=== PATIENT | female | born 1985 | race Caucasian/White ===

== ENCOUNTER 2022-08-14 19:26 | Observation (INO) | payer OTHER ==
--- NOTE | 2022-08-14 20:35 | ED ---
Abdominal Pain HPI - General Chief Complaint: Abdominal Pain Stated Complaint: appendicitis Time Seen by Provider: 08/14/22 20:28 Source: patient Mode of arrival: wheelchair Limitations: no limitations - History of Present Illness Initial Comments: Patient presents to the ED with her for evaluation. Patient states that she developed right lower quadrant abdominal pain about 4-1/2 hours ago. Patient states that her pain was initially mild, but has become steadily more severe since then. Patient states that her pain is worse with movements/changes in position, and she states that her pain waxes and wanes. Patient admits to feeling nauseated as well. Patient states that her primary care provider is concerned that she may have appendicitis, and so she was advised to come to the ED. Patient denies trauma or injury, fever or chills, headache, focal neuro deficit, chest pain or pressure, dyspnea, cough or cold symptoms, dizziness, upper abdominal pain, back or flank pain, vomiting, diarrhea or constipation, bloody or melanotic stool, dysuria/hematuria/urinary frequency/urinary symptoms, vaginal bleeding or discharge, or any other symptoms or complaints. Patient states that she has had a tubal ligation surgery, but she denies any other prior abdominal surgery. Patient states that her LMP was 2 weeks ago. Patient denies taking any pain medication today. - Related Data Home Medications Medication Instructions Recorded Confirmed No Known Home Medications 08/14/22 08/14/22 Allergies Allergy/AdvReac Type Severity Reaction Status Date / Time hydrocodone [From Vicodin] AdvReac Mild Nausea & Verified 08/14/22 21:51 Vomiting Review of Systems ROS Statement: Those systems with pertinent positive or pertinent negative responses have been documented in the HPI. ROS Other: All systems not noted in ROS Statement are negative. General Exam Limitations: no limitations General appearance: alert Head exam: Present: atraumatic, normocephalic Eye exam: Present: normal appearance, EOMI ENT exam: Present: mucous membranes moist Neck exam: Present: other (Trachea is in midline) Respiratory exam: Present: normal lung sounds bilaterally. Absent: respiratory distress, wheezes, rales, rhonchi, stridor Cardiovascular Exam: Present: normal rhythm, tachycardia, normal heart sounds, other (Normal radial pulses bilaterally) GI/Abdominal exam: Present: soft, normal bowel sounds, other (Moderate right lower quadrant abdominal tenderness). Absent: distended, guarding, rebound Back exam: Absent: CVA tenderness (R), CVA tenderness (L) Neurological exam: Present: alert, oriented X3. Absent: motor sensory deficit Psychiatric exam: Present: normal affect, normal mood Skin exam: Present: warm, dry, intact, normal color Course Vital Signs 08/14/22 20:12 Temperature 98.7 F Pulse Rate 115 H Respiratory 20 Rate Blood Pressure 118/71 O2 Sat by Pulse 98 Oximetry - Reevaluation(s) Reevaluation #1: 08/14/22 21:57 Case, H&P, test results and ED management thus far were discussed with Dr. Kaiser (general surgery). He accepts hospital admission. He has no further recommendations at this time. 08/14/22 22:06 Patient states that her pain has improved with the treatment, and she denies development of any new symptoms while in the ED. Patient and are aware the patient's test results and my discussion with Dr. Kaiser as above. Patient agrees with hospital admission for surgical treatment of her acute appendicitis. Medical Decision Making - Medical Decision Making Patient's exam and CT findings are consistent with acute appendicitis. Patient has been treated with IV analgesics and IV antibiotics in the ED. General surgery (Dr. Kaiser) was consulted from the ED and has accepted hospital admission. - Lab Data Result diagrams: 08/14/22 20:28 08/14/22 20:28 Lab Results 08/14/22 08/14/22 Range/Units 20:28 20:28 WBC 11.5 H (3.8-10.6) k/uL RBC 4.69 (3.80-5.40) m/uL Hgb 13.1 (11.4-16.0) gm/dL Hct 39.4 (34.0-46.0) % MCV 83.9 (80.0-100.0) fL MCH 27.9 (25.0-35.0) pg MCHC 33.2 (31.0-37.0) g/dL RDW 13.3 (11.5-15.5) % Plt Count 216 (150-450) k/uL MPV 7.5 Neutrophils % 79 % Lymphocytes % 14 % Monocytes % 4 % Eosinophils % 1 % Basophils % 1 % Neutrophils # 9.0 H (1.3-7.7) k/uL Lymphocytes # 1.7 (1.0-4.8) k/uL Monocytes # 0.4 (0-1.0) k/uL Eosinophils # 0.1 (0-0.7) k/uL Basophils # 0.1 (0-0.2) k/uL Sodium 136 L (137-145) mmol/L Potassium 3.5 (3.5-5.1) mmol/L Chloride 99 (98-107) mmol/L Carbon Dioxide 25 (22-30) mmol/L Anion Gap 12 mmol/L BUN 15 (7-17) mg/dL Creatinine 0.78 (0.52-1.04) mg/dL Est GFR (CKD-EPI)AfAm >90 (>60 ml/min/1.73 sqM) Est GFR (CKD-EPI)NonAf >90 (>60 ml/min/1.73 sqM) Glucose 115 H (74-99) mg/dL Calcium 9.7 (8.4-10.2) mg/dL Total Bilirubin 0.3 (0.2-1.3) mg/dL AST 19 (14-36) U/L ALT 15 (4-34) U/L Alkaline Phosphatase 64 (38-126) U/L Total Protein 6.6 (6.3-8.2) g/dL Albumin 4.4 (3.5-5.0) g/dL Lipase 43 (23-300) U/L HCG, Qual Not Detected - Radiology Data CT abdomen/pelvis with IV contrast: Thickened appendix with fat stranding related to acute appendicitis. Disposition Clinical Impression: Abdominal pain, Acute appendicitis Disposition: ADMITTED IP TO THIS [facility] Condition: Stable Is patient prescribed a controlled substance at d/c from ED?: No Referrals: None,Stated [REFERRING] - 1-2 days Time of Disposition: 21:58
[2022-08-14] MEDS ORDERED: HYDROmorphone 1 MG/ML 1 ML SYRINGE IVP STA ×2 (20:39→23:13)
[2022-08-14] MEDS ORDERED: ONDANSETRON 4 MG/2 ML VIAL IVP STA (20:40)
[2022-08-14] MEDS ORDERED: SODIUM CHLORIDE 0.9% 1,000 ML IV ONE (20:40)
[2022-08-14 20:41] LABS: Basophils # (A) 0.1 k/uL (0-0.2); Basophils % (A) 1 %; Eosinophils # (A) 0.1 k/uL (0-0.7); Eosinophils % (A) 1 %; HCT 39.4 % (34.0-46.0); HGB 13.1 gm/dL (11.4-16.0); Lymphocytes # (A) 1.7 k/uL (1.0-4.8); Lymphocytes % (A) 14 %; MCH 27.9 pg (25.0-35.0); MCHC 33.2 g/dL (31.0-37.0); MCV 83.9 fL (80.0-100.0); Mean Platelet Volume 7.5; Monocytes # (A) 0.4 k/uL (0-1.0); Monocytes % (A) 4 %; Neutrophils % (A) 79 %; Platelet Count 216 k/uL (150-450); RBC 4.69 m/uL (3.80-5.40); RDW 13.3 % (11.5-15.5); WBC 11.5 k/uL (3.8-10.6)
[2022-08-14 20:51] LABS: ALT 15 U/L (4-34); AST 19 U/L (14-36); African American GFR (CKD) >90 (>60 ml/min/1.73 sqM); Albumin 4.4 g/dL (3.5-5.0); Alkaline Phosphatase 64 U/L (38-126); Anion Gap 12 mmol/L; Blood Urea Nitrogen 15 mg/dL (7-17); Calcium 9.7 mg/dL (8.4-10.2); Carbon Dioxide 25 mmol/L (22-30); Chloride 99 mmol/L (98-107); Glucose 115 mg/dL (74-99); Lipase 43 U/L (23-300); Non-African American GFR(CKD) >90 (>60 ml/min/1.73 sqM); Potassium 3.5 mmol/L (3.5-5.1); Sodium 136 mmol/L (137-145); Total Bilirubin 0.3 mg/dL (0.2-1.3); Total Protein 6.6 g/dL (6.3-8.2)
[2022-08-14 21:25] LABS: HCG,Qualitative Serum Not Detected
--- NOTE | 2022-08-14 21:33 | CT ---
EXAMINATION TYPE: CT abdomen pelvis w con DATE OF EXAM: 08/14/2022 COMPARISON: None HISTORY: RLQ pain CT DLP: 886 mGycm Automated exposure control for dose reduction was used. CONTRAST: Performed with IV Contrast, patient injected with 100 mL of Isovue 300. Images obtained from the diaphragm to the floor the pelvis with IV contrast. Lung bases are clear. No pleural effusion. Heart size is normal. No pericardial effusion. Liver splee n and stomach pancreas gallbladder appear intact. The bile ducts are not dilated. There is no adrenal mass. Kidneys have normal size and contour. No hydronephrosis. Ureters are not di lated. No retroperitoneal adenopathy. Bladder distends smoothly. No inguinal hernia. Uterus is anteve rted. No pelvic mass. No free fluid in the pelvis. Delayed images show normal renal excretion. There is 10 mm appendix which is lateral and inferior. There is minimal stranding around the appendix . The lumbar vertebrae have normal alignment. No compression fracture. The pelvis is intact and the gabe nts are intact IMPRESSION: Thickened appendix with fat stranding related to acute appendicitis.
[2022-08-14] MEDS ORDERED: PIPERACILLIN-TAZOBACTAM 3.375 GM in SODIUM CHLORIDE 0.9% 100 ML IVPB STA (21:38)
[2022-08-14] MEDS ORDERED: NALOXONE 0.4 MG/ML 1 ML VIAL IV PRN (21:58)
[2022-08-14] MEDS ORDERED: HYDROmorphone 1 MG/ML 1 ML SYRINGE IVP PRN (21:58)
[2022-08-14] MEDS ORDERED: SODIUM CHLORIDE 0.9% 1,000 ML IV SCH (22:00)
[2022-08-14] MEDS: ONDANSETRON 4 MG/2 ML VIAL IVP PRN (23:23)
[2022-08-14 23:45] LABS: Appearance,Urine Clear (Clear); Bilirubin,Urine Negative (Negative); Blood,Urine Negative (Negative); Color,Urine Colorless; Glucose,Urine (UA) Negative (Negative); Ketones,Urine Negative (Negative); Leukocyte Esterase,Urine Negative (Negative); Nitrite,Urine Negative (Negative); Protein,Urine Negative (Negative); Urobilinogen,Urine <2.0 mg/dL (<2.0)
--- NOTE | 2022-08-15 00:43 | P.HPIM ---
History of Present Illness H&P Date: 08/15/22 Chief Complaint: Abdominal pain 36-year-old female presents to the emergency department with complaints of abdominal pain. Patient states pain began approximately 4 PM August 14. Pain was worse with movement patient noted nausea but no emesis. No fever, no similar complaints in the past. Patient was seen in the emergency department a computed tomography scan was performed which was consistent with acute appendicitis. Review of Systems Denies fever change in vision no shortness of breath No diarrhea No urinary complaints Past Medical History Additional Past Medical History / Comment(s): Denies known hypertension, breathing problems, heart disease, peptic ulcer disease, no neurological problem s. Additional Past Surgical History / Comment(s): History of tubal ligation Medications and Allergies Home Medications and Allergies Comment(s): No regular medications NO KNOWN DRUG ALLERGIES Home Medications Medication Instructions Recorded Confirmed Type No Known Home Medications 08/14/22 08/14/22 History Allergies Allergy/AdvReac Type Severity Reaction Status Date / Time hydrocodone [From Vicodin] AdvReac Mild Nausea & Verified 08/14/22 21:51 Vomiting Physical Exam Vitals: Vital Signs Temp Pulse Resp BP Pulse Ox 08/14/22 20:12 98.7 F 115 H 20 118/71 98 Intake and Output 08/14/22 08/14/22 08/15/22 14:59 22:59 06:59 Other: Weight 71.668 kg - Constitutional Appears uncomfortable, complaining of nausea after pain medication - EENT Sclerae clear, nonicteric, extraocular muscles intact - Respiratory Clear to auscultation - Cardiovascular Regular rate and rhythm, no murmur noted - Gastrointestinal Protuberant, soft, right lower quadrant tenderness present. - Neurologic Slightly agitated secondary to nausea, orientated 3, appropriate affect Results CBC & Chem 7: 08/14/22 20:28 08/14/22 20:28 Labs: Abnormal Lab Results - Last 24 Hours (Table) 08/14/22 08/14/22 08/14/22 Range/Units 20:28 20:28 23:10 WBC 11.5 H (3.8-10.6) k/uL Neutrophils # 9.0 H (1.3-7.7) k/uL Sodium 136 L (137-145) mmol/L Glucose 115 H (74-99) mg/dL Ur Specific [place] 1.040 H (1.001-1.035) CT scan - abdomen: report reviewed (CT notes thickened appendix with fat stranding consistent with appendicitis) Assessment and Plan Assessment: 36-year-old female with acute appendicitis Plan: Admit, IV antibiotics, IV fluids, nothing by mouth Plan for laparoscopic possible open appendectomy in morning This was discussed with the patient and her spouse and they're agreeable.
[2022-08-15] MEDS: KETOROLAC 15 MG/ML 1 ML VIAL IVP SCH ×3 (01:17→14:20)
[2022-08-15 06:28] LABS: Basophils % (A) 1 %; Eosinophils % (A) 0 %; HCT 38.1 % (34.0-46.0); HGB 12.2 gm/dL (11.4-16.0); Lymphocytes # (A) 1.1 k/uL (1.0-4.8); Lymphocytes % (A) 12 %; MCH 27.2 pg (25.0-35.0); MCHC 32.1 g/dL (31.0-37.0); MCV 84.9 fL (80.0-100.0); Mean Platelet Volume 7.6; Monocytes # (A) 0.3 k/uL (0-1.0); Monocytes % (A) 4 %; Neutrophils # (A) 7.6 k/uL (1.3-7.7); Neutrophils % (A) 82 %; Platelet Count 180 k/uL (150-450); RBC 4.49 m/uL (3.80-5.40); RDW 13.3 % (11.5-15.5); WBC 9.2 k/uL (3.8-10.6)
[2022-08-15] MEDS: ONDANSETRON 4 MG/2 ML VIAL IVP PRN (06:37)
[2022-08-15 06:46] LABS: ALT 13 U/L (4-34); AST 15 U/L (14-36); African American GFR (CKD) >90 (>60 ml/min/1.73 sqM); Albumin 3.5 g/dL (3.5-5.0); Alkaline Phosphatase 51 U/L (38-126); Anion Gap 8 mmol/L; Blood Urea Nitrogen 11 mg/dL (7-17); Calcium 8.4 mg/dL (8.4-10.2); Carbon Dioxide 23 mmol/L (22-30); Chloride 104 mmol/L (98-107); Glucose 132 mg/dL (74-99); Non-African American GFR(CKD) >90 (>60 ml/min/1.73 sqM); Potassium 4.2 mmol/L (3.5-5.1); Sodium 135 mmol/L (137-145); Total Bilirubin 0.4 mg/dL (0.2-1.3); Total Protein 5.6 g/dL (6.3-8.2)
[2022-08-15] MEDS ORDERED: BUPIVACAIN-EPI 0.25%-1:200,000 30 ML VIAL SQ ONE ×2 (08:53→09:26)
[2022-08-15] MEDS ORDERED: DEXAMETHASONE SOD PHOSPHATE 10 MG/ML 1 ML VIAL IVP ONE (08:58)
[2022-08-15] MEDS ORDERED: METOCLOPRAMIDE 5 MG/ML 2 ML VIAL IVP ONE (08:58)
[2022-08-15] MEDS ORDERED: fentaNYL (PF) 50 MCG/ML 2 ML AMP ONE (09:01)
[2022-08-15] MEDS ORDERED: LIDOCAINE 2% INJ 20 MG/ML (2 ML VIAL) ONE (09:01)
[2022-08-15] MEDS ORDERED: ROCURONIUM 10 MG/ML (5 ML VIAL) IV ONE (09:01)
[2022-08-15] MEDS ORDERED: NEOSTIGMINE 1 MG/ML 10 ML VIAL ONE (09:01)
[2022-08-15] MEDS ORDERED: PROPOFOL 10 MG/ML 20 ML VIAL IV ONE (09:01)
[2022-08-15] MEDS ORDERED: GLYCOPYRROLATE 0.2 MG/ML 2 ML VIAL ONE (09:01)
[2022-08-15] MEDS ORDERED: MIDAZOLAM 2 MG/2 ML VIAL ONE (09:01)
[2022-08-15] MEDS ORDERED: SUCCINYLCHOLINE CHLORIDE 200 MG/10 ML VIAL IV ONE (09:01)
[2022-08-15] MEDS ORDERED: SCOPOLAMINE 1 MG/72 HR PATCH TRANSDERM ONE (09:04)
[2022-08-15] MEDS ORDERED: SODIUM CHLORIDE 0.9% 100 ML with ceFAZolin 1,000 MG IV ONE ×2 (09:06)
[2022-08-15] MEDS ORDERED: IV FLUID CONTINUATION 1,000 ML IV ONE (09:06)
[2022-08-15] MEDS ORDERED: oxyCODONE-APAP 5-325MG 1 EACH TAB PO PRN (10:17)
[2022-08-15 10:20] VITALS: RESP 16; TEMP 97
--- NOTE | 2022-08-15 10:52 | P.OP ---
Date of Procedure: 08/15/22 Preoperative Diagnosis: Acute appendicitis Postoperative Diagnosis: Acute appendicitis Procedure(s) Performed: Laparoscopic appendectomy Anesthesia: ZAINAB Surgeon: German Kaiser Estimated Blood Loss (ml): 5 IV fluids (ml): 800 Pathology: other (Appendix) Condition: stable Disposition: PACU Indications for Procedure: Patient is a 36-year-old female who presented to the emergency room yesterday evening with complaints of lower abdominal pain severe nausea and vomiting. Patient stated her symptoms began approximately 4 PM and have been continuous. Patient was seen in the emergency department, laboratory studies indicated leukocytosis, a CT was performed which was consistent with acute appendicitis. The nature of appendicitis and its surgical treatment were discussed with the patient and her spouse and informed consent was obtained for appendectomy. Operative Findings: Inflamed appendix without evidence of rupture Description of Procedure: The patient was brought to the operating room a full timeout was taken. Preoperative antibiotics were given. General anesthesia and monitoring were provided by the anesthesia department. Patient had a preoperative urinary catheter placed, she was then placed on the table in a supine position, with the left arm tucked and well-padded. The abdomen was widely prepped and draped in a sterile fashion. A small skin incision was made just above the umbilicus, using a Veress needle, a pneumoperitoneum was established. Entry was gained into the abdominal cavity using a 5 mm optical trocar. Visualization of the abdominal cavity demonstrated a normal appearing liver and gallbladder and stomach. The omentum was draped over the lower right quadrant. A second 5 mm trocar was placed in the lower midline. Using a grasper the omentum was brought off the cecum and a moderately inflamed appendix could be visualized. A 12 mm trocar was placed in the left lower quadrant under direct vision. The appendix was then grasped and a small opening made in the mesoappendix at the base. The base of the appendix was transected across using a Endo AZUL stapler. The remaining mesoappendix was similarly transected across with the Endo AZUL. Specimen was placed in an Endobag and brought out through the larger trocar site. Specimen was handed off the table to be examined by pathology. Trocar was replaced surgical field was inspected, there is noted to be a small amount of bleeding from the staple line. This was controlled with careful cautery in this area. Terminal ileum was inspected and appeared normal. The fascia at the larger trocar site was reapproximated using 0 Vicryl on a Aaron Castellon needle. The pneumoperitoneum was released, the skin was closed at all sites with 4-0 subcuticular Vicryl. Dermabond was placed on the skin. At the completion of the procedure all counts were correct. Patient was extubated and taken to recovery in good condition.
[2022-08-15 16:51] VITALS: BP 94/60; PULSE 65
== END 2022-08-15 17:30 | disposition home or self-care (01) ==
LOC: EC 19:26 → 6NMEDSUR 21:58
PROVIDERS: ADMIT Surgery; ATTEND Surgery
DX: K35.80 Unspecified acute appendicitis (principal); K38.8 Other specified diseases of appendix; K21.9 Gastro-esophageal reflux disease without esophagitis; K44.9 Diaphragmatic hernia without obstruction or gangrene; Z88.5 Allergy status to narcotic agent; Z98.51 Tubal ligation status
CPT/HCPCS: 44970; 96376 ×2; 96374; 96375 ×2; 99285; 36415; 88304; 80053 ×2; 83690; 85025 ×2; 81003; 84703; 74177; G0378 ×2; J2543; J2250; J0330; J1100; J2710; J2765; J2405 ×2; J0690; J3010; J1170; J1885; J2704; Q9967; J2001

== ENCOUNTER → 2023-10-26 | Outpatient (CLI) | payer OTHER ==
[2023-10-27 02:50] LABS: Estradiol 38.6 pg/mL
[2023-10-27 03:58] LABS: Follicle Stimulating Hormone 7.8 mIU/mL; Luteinizing Hormone 11.2 mIU/mL
== END | disposition home or self-care (01) ==
LOC: LABWHC1 13:20
PROVIDERS: ATTEND Family Medicine
DX: N95.1 Menopausal and female climacteric states (principal)
CPT/HCPCS: 36415; 82670; 83001; 83002; 84144; 84146

== ENCOUNTER → 2023-10-31 | Outpatient (CLI) | payer OTHER ==
--- NOTE | 2023-10-31 12:21 | BD ---
EXAMINATION TYPE: Axial Bone Density DATE OF EXAM: 10/31/2023 CLINICAL HISTORY: 38 years old Female. ICD-10 CODE: N95.1 MENOPAUSAL AND FEMALE CLIMACTERIC STATES Height: 65 Weight: 164.8 FRAX RISK QUESTIONS: Alcohol (3 or more units per day): no Family History (Parent hip fracture): no Glucocorticoids (More than 3mos): no (Ex: prednisone, prednisolone, methylprednisolone, dexamethasone, and hydrocortisone). History of Fracture in Adulthood: yes Secondary Osteoporosis: 1. Type 1 Diabetes: no 2. Hyperthyroidism: no 3. Menopause before 45: n/a 4. Malnutrition: no 5. Chronic liver disease: no Rheumatoid Arthritis: no Current Tobacco Use: no RISK FACTORS HISTORY OF: Surgery to Spine/Hip(right/left)/Wrist (right/left): no Family History of Osteoporosis: yes : Additional History: EXAM MEASUREMENTS: Bone mineral densitometry was performed using the [employer]dev[employer] System. Bone mineral density as measured about the Lumbar spine is: ----- L1-L4(G/cm2): 1.181 T Score Values are as follows: ----- L1: 0.0 ----- L2: -0.1 ----- L3: 0.1 ----- L4: -0.1 ----- L1-L4: 0.0 Z Score Values are as follows: ----- L1: -0.4 ----- L2: -0.4 ----- L3: -0.2 ----- L4: -0.4 ----- L1-L4: -0.3 Bone mineral density : baseline Bone mineral density about the R hip (g/cm2): 0.932 Bone mineral density about the L hip (g/cm2): 0.922 T Score values are as follows: -----R Neck: 0.0 -----L Neck: -0.3 -----R Total: -0.6 -----L Total: -0.7 Z Score values are as follows: -----R Neck: 0.2 -----L Neck: -0.1 -----R Total: -0.6 -----L Total: -0.7 Bone mineral density : baseline FRAX%s: The graph provided illustrates a 3.4% chance for a major osteoporotic fx and a 0.1% chance fo r the hips probability for fx in 10 years time. IMPRESSION: Normal (Values between +1 and -1 indicate normal bone mass). Consider repeating this study in 5 year s or sooner if there is some new clinical indication. NOTE: T-SCORE=SD OF THE YOUNG ADULT MEAN.
== END | disposition home or self-care (01) ==
LOC: RADBDWWP 07:08
PROVIDERS: ATTEND Family Medicine
DX: N95.1 Menopausal and female climacteric states (principal)
CPT/HCPCS: 77080

== ENCOUNTER → 2024-05-22 | Outpatient (CLI) | payer OTHER | END | disposition home or self-care (01) | LOC: LABWHC1 06:55 | PROVIDERS: ATTEND Family Medicine | DX: E16.2 Hypoglycemia, unspecified (principal) | CPT/HCPCS: 36415; 82947; 82950 ==

== ENCOUNTER 2024-06-08 22:53 | Emergency (ER) | payer OTHER ==
[2024-06-08 22:59] VITALS: TEMP 98.1
[2024-06-08 23:02] LABS: Glucose,Whole Blood 105 mg/dL (70-110)
[2024-06-08 23:09] LABS: Glucose,Whole Blood 126 mg/dL (70-110)
[2024-06-09 00:01] LABS: Basophils # (A) 0.1 k/uL (0-0.2); Basophils % (A) 1 %; Eosinophils # (A) 0.1 k/uL (0-0.7); Eosinophils % (A) 1 %; HCT 43.1 % (34.0-46.0); Lymphocytes # (A) 2.5 k/uL (1.0-4.8); Lymphocytes % (A) 22 %; MCH 27.8 pg (25.0-35.0); MCHC 32.4 g/dL (31.0-37.0); MCV 85.7 fL (80.0-100.0); Mean Platelet Volume 7.8; Monocytes # (A) 0.5 k/uL (0-1.0); Monocytes % (A) 5 %; Neutrophils # (A) 7.9 k/uL (1.3-7.7); Neutrophils % (A) 71 %; Platelet Count 235 k/uL (150-450); RBC 5.03 m/uL (3.80-5.40); RDW 13.3 % (11.5-15.5); WBC 11.2 k/uL (3.8-10.6)
[2024-06-09 00:08] LABS: ALT 23 U/L (4-34); AST 31 U/L (14-36); African American GFR (CKD) >90 (>60 ml/min/1.73 sqM); Albumin 4.3 g/dL (3.5-5.0); Alkaline Phosphatase 54 U/L (38-126); Anion Gap 10 mmol/L; Blood Urea Nitrogen 15 mg/dL (7-17); Calcium 9.3 mg/dL (8.4-10.2); Carbon Dioxide 22 mmol/L (22-30); Chloride 106 mmol/L (98-107); Glucose 124 mg/dL (74-99); Non-African American GFR(CKD) >90 (>60 ml/min/1.73 sqM); Potassium 4.2 mmol/L (3.5-5.1); Sodium 138 mmol/L (137-145); Total Bilirubin 0.5 mg/dL (0.2-1.3); Total Protein 6.9 g/dL (6.3-8.2)
[2024-06-09 00:26] VITALS: RESP 18
[2024-06-09] MEDS: ONDANSETRON 4 MG/2 ML VIAL IVP STA (00:31)
[2024-06-09] MEDS: SODIUM CHLORIDE 0.9% 1,000 ML IV ONE (00:31)
[2024-06-09 02:14] LABS: Glucose,Whole Blood 93 mg/dL (70-110)
[2024-06-09 02:38] LABS: Appearance,Urine Clear (Clear); Bacteria,Urine Rare /hpf; Bilirubin,Urine Negative (Negative); Blood,Urine Large (Negative); Color,Urine Colorless; Glucose,Urine (UA) Negative (Negative); Ketones,Urine Negative (Negative); Leukocyte Esterase,Urine Small (Negative); Nitrite,Urine Negative (Negative); PH, Urine 6.5 (5.0-8.0); Protein,Urine Negative (Negative); RBC,Urine >182 /hpf (0-5); Squamous Epithelial Cell,Urine 3 /hpf (0-4); Urobilinogen,Urine <2.0 mg/dL (<2.0); WBC,Urine 11 /hpf (0-5)
--- NOTE | 2024-06-09 03:19 | ED ---
General Adult HPI - General Chief complaint: Recheck/Abnormal Lab/Rx Stated complaint: Hypogylcemia Time Seen by Provider: 06/08/24 23:00 Source: patient Mode of arrival: ambulatory Limitations: no limitations - History of Present Illness Initial comments: 38-year-old female who presents emergency department with recurrent hypoglycemia. Patient states that for the past 3 weeks she has had nausea with inability to eat or drink. She has had multiple episodes of near syncope. She borrowed a glucose monitor and found that she was having significant episodes of hypoglycemia. Her primary care doctor is now aware of this diagnosis and has her referred to endocrinology. States that this evening she was having significant difficulty keeping any food down and therefore presents to the hospital for evaluation. She denies any diarrhea. No fevers. No abdominal pain. - Related Data Previous Rx's Medication Instructions Recorded Ondansetron Odt [Zofran Odt] 4 mg PO Q8HR PRN #30 tab 06/09/24 Allergies Allergy/AdvReac Type Severity Reaction Status Date / Time hydrocodone [From Vicodin] AdvReac Mild Nausea & Verified 06/08/24 22:59 Vomiting Review of Systems ROS Statement: Those systems with pertinent positive or pertinent negative responses have been documented in the HPI. ROS Other: All systems not noted in ROS Statement are negative. Past Medical History Additional Past Medical History / Comment(s): Denies known hypertension, breathing problems, heart disease, peptic ulcer disease, no neurological problems, hypoglycemia. History of Any Multi-Drug Resistant Organisms: None Reported Past Surgical History: Appendectomy, Tubal Ligation Additional Past Surgical History / Comment(s): History of tubal ligation, [place] 08/15/22 Past Anesthesia/Blood Transfusion Reactions: No Reported Reaction Past Psychological History: No Psychological Hx Reported Smoking Status: Unknown if ever smoked Past Alcohol Use History: None Reported Past Drug Use History: None Reported General Exam Limitations: no limitations General appearance: alert, in no apparent distress Head exam: Present: atraumatic, normocephalic, normal inspection Eye exam: Present: normal appearance, PERRL, EOMI. Absent: scleral icterus, conjunctival injection, periorbital swelling ENT exam: Present: normal exam, mucous membranes moist Neck exam: Present: normal inspection. Absent: tenderness, meningismus, lymp hadenopathy Respiratory exam: Present: normal lung sounds bilaterally. Absent: respiratory distress, wheezes, rales, rhonchi, stridor Cardiovascular Exam: Present: regular rate, normal rhythm, normal heart sounds. Absent: systolic murmur, diastolic murmur, rubs, gallop, clicks GI/Abdominal exam: Present: soft, normal bowel sounds. Absent: distended, tenderness, guarding, rebound, rigid Extremities exam: Present: normal inspection, full ROM, normal capillary refill. Absent: tenderness, pedal edema, joint swelling, calf tenderness Back exam: Present: normal inspection Neurological exam: Present: alert, oriented X3, CN II-XII intact Psychiatric exam: Present: normal affect, normal mood Skin exam: Present: warm, dry, intact, normal color. Absent: rash Course Vital Signs 06/08/24 06/09/24 06/09/24 22:56 00:25 02:15 Temperature 98.1 F Pulse Rate 96 88 79 Respiratory 20 18 18 Rate Blood Pressure 150/86 129/94 122/85 O2 Sat by Pulse 99 99 99 Oximetry 06/09/24 03:25 Temperature Pulse Rate 84 Respiratory 18 Rate Blood Pressure 105/79 O2 Sat by Pulse 99 Oximetry Medical Decision Making - Medical Decision Making Was pt. sent in by a medical professional or institution (, PA, BOOT AND SADDLE REPAIR PERSON, urgent care, hospital, or [facility]...) When possible be specific @ -No Did you speak to anyone other than the patient for history (EMS, parent, family, police, friend...)? What history was obtained from this source @ -No Did you review nursing and triage notes (agree or disagree)? Why? @ -I reviewed and agree with nursing and triage notes Were old charts reviewed (outside hosp., previous admission, EMS record, old EKG, old radiological studies, urgent care reports/EKG's, [facility] records)? Report findings @ -No old charts were reviewed Differential Diagnosis (chest pain, altered mental status, abdominal pain women, abdominal pain men, vaginal bleeding, weakness, fever, dyspnea, syncope, headache, dizziness, GI bleed, back pain, seizure, CVA, palpatations, mental health, musculoskeletal)? @ -Hypoglycemia, hyperthyroid, hypothyroid, gastroenteritis EKG interpreted by me (3pts min.). @ -Not done X-rays interpreted by me (1pt min.). @ -None done CT interpreted by me (1pt min.). @ -None done U/S interpreted by me (1pt. min.). @ -None done What testing was considered but not performed or refused? (CT, X-rays, U/S, labs)? Why? @ -None What meds were considered but not given or refused? Why? @ -None Did you discuss the management of the patient with other professionals (professionals i.e. DrParvin, PA, BOOT AND SADDLE REPAIR PERSON, lab, RT, psych nurse, social work case manager, progressive care manager, teacher, conservation science officer, telephonic case manager)? Give summary @ -No Was smoking cessation discussed for >3mins.? @ -No Was critical care preformed (if so, how long)? @ -No Were there social determinants of health that impacted care today? How? (Homelessness, low income, unemployed, alcoholism, drug addiction, transportation, low edu. Level, literacy, decrease access to med. care, nursing home, rehab)? @ -No Was there de-escalation of care discussed even if they declined (Discuss DNR or withdrawal of care, Hospice)? DNR status @ -No What co-morbidities impacted this encounter? (DM, HTN, Smoking, COPD, CAD, Cancer, CVA, ARF, Chemo, Hep., AIDS, mental health diagnosis, sleep apnea, morbid obesity)? @ -None Was patient admitted / discharged? Hospital course, mention meds given and route, prescriptions, significant lab abnormalities, going to OR and other pertinent info. @ -Upon arrival patient seen and evaluated in room 2. Thorough history and physical exam was performed. IV was established. Laboratory studies are conducted. Patient given Zofran for nausea. We did repeat the patient's glucose several times. She does not have any episodes of hypoglycemia in the e mergency department. Patient does require referral to endocrinology. Patient is able to eat and drink by mouth. At this time she will be discharged in needs to follow-up with endocrinology in outpatient setting in regards to her symptoms. Watch her sugars closely and return for any new or worsening symptoms. Patient agreeable to plan was discharged in stable condition Undiagnosed new problem with uncertain prognosis? @ -No Drug Therapy requiring intensive monitoring for toxicity (Heparin, Nitro, Insulin, Cardizem)? @ -No Were any procedures done? @ -No Diagnosis/symptom? @ --Acute nausea vomiting, acute recurrent hypoglycemia Acute, or Chronic, or Acute on Chronic? @ Acute Uncomplicated (without systemic symptoms) or Complicated (systemic symptoms)? @ -Complicated Side effects of treatment? @ -No Exacerbation, Progression, or Severe Exacerbation? @ -No Poses a threat to life or bodily function? How? (Chest pain, USA, DC, pneumonia, PE, COPD, DKA, ARF, appy, cholecystitis, CVA, Diverticulitis, Homicidal, Suicidal, threat to staff... and all critical care pts) @ -No - Lab Data Result diagrams: 06/08/24 23:55 06/08/24 23:55 Lab Results 06/08/24 06/08/24 06/08/24 Range/Units 22:59 23:07 23:08 WBC (3.8-10.6) k/uL RBC (3.80-5.40) m/uL Hgb (11.4-16.0) gm/dL Hct (34.0-46.0) % MCV (80.0-100.0) fL MCH (25.0-35.0) pg MCHC (31.0-37.0) g/dL RDW (11.5-15.5) % Plt Count (150-450) k/uL MPV Neutrophils % % Lymphocytes % % Monocytes % % Eosinophils % % Basophils % % Neutrophils # (1.3-7.7) k/uL Lymphocytes # (1.0-4.8) k/uL Monocytes # (0-1.0) k/uL Eosinophils # (0-0.7) k/uL Basophils # (0-0.2) k/uL Sodium (137-145) mmol/L Potassium (3.5-5.1) mmol/L Chloride (98-107) mmol/L Carbon Dioxide (22-30) mmol/L Anion Gap mmol/L BUN (7-17) mg/dL Creatinine (0.52-1.04) mg/dL Est GFR (CKD-EPI)AfAm (>60 ml/min/1.73 sqM) Est GFR (CKD-EPI)NonAf (>60 ml/min/1.73 sqM) Glucose (74-99) mg/dL POC Glucose (mg/dL) 105 126 H (70-110) mg/dL POC Glu Drop Forger Simone Sigala Kyle Plasma Lactic Acid [place] 1.6 (0.7-2.0) mmol/L Calcium (8.4-10.2) mg/dL Total Bilirubin (0.2-1.3) mg/dL AST (14-36) U/L ALT (4-34) U/L Alkaline Phosphatase (38-126) U/L Total Protein (6.3-8.2) g/dL Albumin (3.5-5.0) g/dL TSH (0.465-4.680) mIU/L Urine Color Urine Appearance (Clear) Urine pH (5.0-8.0) Ur Specific [place] (1.001-1.035) Urine Protein (Negative) Urine Glucose (UA) (Negative) Urine Ketones (Negative) Urine Blood (Negative) Urine Nitrite (Negative) Urine Bilirubin (Negative) Urine Urobilinogen (<2.0) mg/dL Ur Leukocyte Esterase (Negative) Urine RBC (0-5) /hpf Urine WBC (0-5) /hpf Ur Squamous Epith Cells (0-4) /hpf Urine Bacteria (None) /hpf 06/08/24 06/08/24 06/09/24 Range/Units 23:55 23:55 02:07 WBC 11.2 H (3.8-10.6) k/uL RBC 5.03 (3.80-5.40) m/uL Hgb 14.0 (11.4-16.0) gm/dL Hct 43.1 (34.0-46.0) % MCV 85.7 (80.0-100.0) fL MCH 27.8 (25.0-35.0) pg MCHC 32.4 (31.0-37.0) g/dL RDW 13.3 (11.5-15.5) % Plt Count 235 (150-450) k/uL MPV 7.8 Neutrophils % 71 % Lymphocytes % 22 % Monocytes % 5 % Eosinophils % 1 % Basophils % 1 % Neutrophils # 7.9 H (1.3-7.7) k/uL Lymphocytes # 2.5 (1.0-4.8) k/uL Monocytes # 0.5 (0-1.0) k/uL Eosinophils # 0.1 (0-0.7) k/uL Basophils # 0.1 (0-0.2) k/uL Sodium 138 (137-145) mmol/L Potassium 4.2 (3.5-5.1) mmol/L Chloride 106 (98-107) mmol/L Carbon Dioxide 22 (22-30) mmol/L Anion Gap 10 mmol/L BUN 15 (7-17) mg/dL Creatinine 0.70 (0.52-1.04) mg/dL Est GFR (CKD-EPI)AfAm >90 (>60 ml/min/1.73 sqM) Est GFR (CKD-EPI)NonAf >90 (>60 ml/min/1.73 sqM) Glucose 124 H (74-99) mg/dL POC Glucose (mg/dL) (70-110) mg/dL POC Glu Drop Forger ID Plasma Lactic Acid [place] (0.7-2.0) mmol/L Calcium 9.3 (8.4-10.2) mg/dL Total Bilirubin 0.5 (0.2-1.3) mg/dL AST 31 (14-36) U/L ALT 23 (4-34) U/L Alkaline Phosphatase 54 (38-126) U/L Total Protein 6.9 (6.3-8.2) g/dL Albumin 4.3 (3.5-5.0) g/dL TSH 2.350 (0.465-4.680) mIU/L Urine Color Colorless Urine Appearance Clear (Clear) Urine pH 6.5 (5.0-8.0) Ur Specific [place] 1.010 (1.001-1.035) Urine Protein Negative (Negative) Urine Glucose (UA) Negative (Negative) Urine Ketones Negative (Negative) Urine Blood Large H (Negative) Urine Nitrite Negative (Negative) Urine Bilirubin Negative (Negative) Urine Urobilinogen <2.0 (<2.0) mg/dL Ur Leukocyte Esterase Small H (Negative) Urine RBC >182 H (0-5) /hpf Urine WBC 11 H (0-5) /hpf Ur Squamous Epith Cells 3 (0-4) /hpf Urine Bacteria Rare H (None) /hpf 06/09/24 Range/Units 02:12 WBC (3.8-10.6) k/uL RBC (3.80-5.40) m/uL Hgb (11.4-16.0) gm/dL Hct (34.0-46.0) % MCV (80.0-100.0) fL MCH (25.0-35.0) pg MCHC (31.0-37.0) g/dL RDW (11.5-15.5) % Plt Count (150-450) k/uL MPV Neutrophils % % Lymphocytes % % Monocytes % % Eosinophils % % Basophils % % Neutrophils # (1.3-7.7) k/uL Lymphocytes # (1.0-4.8) k/uL Monocytes # (0-1.0) k/uL Eosinophils # (0-0.7) k/uL Basophils # (0-0.2) k/uL Sodium (137-145) mmol/L Potassium (3.5-5.1) mmol/L Chloride (98-107) mmol/L Carbon Dioxide (22-30) mmol/L Anion Gap mmol/L BUN (7-17) mg/dL Creatinine (0.52-1.04) mg/dL Est GFR (CKD-EPI)AfAm (>60 ml/min/1.73 sqM) Est GFR (CKD-EPI)NonAf (>60 ml/min/1.73 sqM) Glucose (74-99) mg/dL POC Glucose (mg/dL) 93 (70-110) mg/dL POC Glu Drop Forger ID Evelyn, Erinn Plasma Lactic Acid [place] (0.7-2.0) mmol/L Calcium (8.4-10.2) mg/dL Total Bilirubin (0.2-1.3) mg/dL AST (14-36) U/L ALT (4-34) U/L Alkaline Phosphatase (38-126) U/L Total Protein (6.3-8.2) g/dL Albumin (3.5-5.0) g/dL TSH (0.465-4.680) mIU/L Urine Color Urine Appearance (Clear) Urine pH (5.0-8.0) Ur Specific [place] (1.001-1.035) Urine Protein (Negative) Urine Glucose (UA) (Negative) Urine Ketones (Negative) Urine Blood (Negative) Urine Nitrite (Negative) Urine Bilirubin (Negative) Urine Urobilinogen (<2.0) mg/dL Ur Leukocyte Esterase (Negative) Urine RBC (0-5) /hpf Urine WBC (0-5) /hpf Ur Squamous Epith Cells (0-4) /hpf Urine Bacteria (None) /hpf Disposition Clinical Impression: Nausea, Hypoglycemia Disposition: HOME SELF-CARE Condition: Stable Instructions (If sedation given, give patient instructions): Non-diabetic Hypoglycemia (ED) Additional Instructions: Please call and make an appointment with the user interface developer. Follow the recommended diet. Take the Zofran as needed for nausea and return for any new or worsening symptoms Prescriptions: Ondansetron Odt [Zofran Odt] 4 mg PO Q8HR PRN #30 tab PRN Reason: Nausea Is patient prescribed a controlled substance at d/c from ED?: No Referrals: Rajesh Oglesby MD [Primary Care Provider] - 1-2 days Betzaida Barney [STAFF PHYSICIAN] - 1-2 days Time of Disposition: 03:18
[2024-06-09] MEDS: ONDANSETRON 4 MG ODT STARTER PACK 2 TAB BTL PO STA (03:24)
[2024-06-09 03:26] VITALS: BP 105/79; PULSE 84
== END 2024-06-09 03:28 | disposition home or self-care (01) ==
LOC: EC 22:53
DX: E16.2 Hypoglycemia, unspecified (principal); Z88.8 Allergy status to other drugs, medicaments and biological substances
CPT/HCPCS: 36415 ×2; 80053; 84443; 83605; 85025; 81001; 99284; 96374; 96361; J2405; S0119

== ENCOUNTER → 2024-07-19 | Outpatient (CLI) | payer OTHER ==
--- NOTE | 2024-08-10 12:02 | CA ---
Exercise Stress Test Report Name: Elyssa Cheng Exam Date: 07/19/2024 09:36 Exam Location: [place] Stress Ht (in): 65 Wt (lb): 167 BSA: 1.83 Ordering Phys: Referring Phys: DAVID Technologist: Edgar Tobias Age: 38 Gender: F : 1985 Procedure CPT: Indications: ICD-10 Codes: Patient History: Palpitations Medications: Meds past 24 hrs: Pretest Chest Pain: STRESS TEST Rodolfo Protocol Exercise Duration (min:sec): 09:[address] Depressions (mm): 0 Angina Score: 0 Lee Score: 9.25 Resting HR (bpm): 91 Peak HR (bpm): 170 Resting BP (mmHg): 112 / 74 Peak BP (mmHg): 134 / 58 MPHR: 180 Target HR: 153 % MPHR: 94 METS: 10.6 Total Dose: Peak Dose: Atropine: Double Product: 18735 BP Response: Stress Termination: Target HR Stress Symptoms: LIGHT HEADED Stress Summary: The patient's target heart rate was achieved ECG ANALYSIS Resting ECG: Sinus rhythm. Normal conduction. No arrhythmias. Normal repolarization. Stress ECG: No ECG evidence of ischemia with exercise. CONCLUSIONS Patient falls into low-risk group (DTS >= +5). This associates the patient with an annual CV mortality <= 0.5%. Exercise capacity very good at >[address] segment response to stress. Normal electrocardiographic response to exercise with no evidence of stress induced ischemia Dr. Brisa Cast MD (Electronically Signed) Final Date: 19 July 2024 11:53
== END | disposition home or self-care (01) ==
LOC: RADNMMAIN 08:54
PROVIDERS: ATTEND Family Medicine
DX: R94.31 Abnormal electrocardiogram [ECG] [EKG] (principal); R42 Dizziness and giddiness; R00.2 Palpitations
CPT/HCPCS: 93017

== ENCOUNTER → 2025-02-26 | Outpatient (CLI) | payer OTHER | END | disposition home or self-care (01) | LOC: RADMAMWWP 11:55 | PROVIDERS: ATTEND Family Medicine | DX: Z53.9 Procedure and treatment not carried out, unspecified reason (principal) ==

== ENCOUNTER → 2025-05-17 | Outpatient (CLI) | payer OTHER ==
--- NOTE | 2025-05-17 08:53 | USB ---
Reason for Exam: Clinical finding. Patient History: Menarche at age 13. First Full-Term at age 22. Premenopausal. Risk Values: Allegra 5 year model risk: 0.5%. NCI Lifetime model risk: 8.2%. Technique: Method: Whole Breast Handheld. Prior Study Comparison: 03/18/2025 Bilateral MG screening mammo w ANN, [facility]. Findings: The whole breast of the right breast, the axilla of the right breast and the retroareolar of the right breast were scanned. Whole right breast ultrasound including scanning of the subareolar region and axilla. No solid or cystic lesion or axillary adenopathy. Minimal benign subareolar duct ectasia is noted. Overall Assessment: Probably benign, BI-RAD 3 Management: Diagnostic Mammogram of the right breast in 4 months. As a precautionary measure to assess for any abnormal changes compared to the patient's baseline mammogram performed back in February. Otherwise, further clinical management of patient's right breast pain. A clinical breast exam by your physician is recommended on an annual basis and results should be correlated with mammographic findings. This exam should not preclude additional follow-up of suspicious palpable abnormalities. Results were given to the patient verbally at the time of exam. [facility], , 05/17/2025 8:51 AM. Electronically signed and approved by: Clemente Nichols M.D. Radiologist
== END | disposition home or self-care (01) ==
LOC: RADUSWWP 07:25
DX: N60.41 Mammary duct ectasia of right breast (principal)